=== PATIENT | male | born 2000 | race Two or more races ===

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

== ENCOUNTER 2023-03-01 18:33 | Emergency (ER) | payer OTHER ==
[~2023-03-01] VITALS: Ht 180.3 cm; Wt 124.7 kg
[~2023-03-01 18:33] MED LIST changes: +AZIT250 PO; +BENZ100A PO; +GUAI600T33 PO; +ONDA4ODT MM
[2023-03-01 19:02] VITALS: BP 141/81
== END 2023-03-01 20:10 | disposition home or self-care (01) ==
LOC: ER 18:33
DX: B34.9 Viral infection, unspecified (principal)
CPT/HCPCS: 99283

== ENCOUNTER 2023-10-19 16:54 | Emergency (ER) | payer OTHER ==
[~2023-10-19] VITALS: Ht 180.3 cm; Wt 124.7 kg
[2023-10-19 17:56] VITALS: BP 133/87
[2023-10-19] MEDS ORDERED: Veetids 500500 MG PO (17:59)
== END 2023-10-19 18:03 | disposition home or self-care (01) ==
LOC: ER 16:54
DX: J02.9 Acute pharyngitis, unspecified (principal); F17.200 Nicotine dependence, unspecified, uncomplicated
CPT/HCPCS: 96374; 99282-25; A9270; J1100

== ENCOUNTER → 2025-02-01 | Outpatient (CLI) | payer OTHER ==
[~2025-02-01] MED LIST changes: +DICY20 PO; +Veetids 500500 MG PO
[2025-02-01 12:51] LABS: BASOPHILS ABSOLUTE AUTO 0.03 K/mm3 (0.00-0.23); BASOPHILS PERCENT AUTO 0 % (0-2); EOSINOPHILS PERCENT AUTO 2 % (0-6); Hematocrit 43.8 % (37.0-53.0); Hemoglobin 14.6 g/dL (13.5-17.5); IMMATURE GRAN ABSOLUTE AUTO 0.03 K/mm3 (0.00-0.10); IMMATURE GRAN PERCENT AUTO 0 % (0-1); LYMPHOCYTES ABSOLUTE AUTO 2.61 K/mm3 (0.84-5.20); LYMPHOCYTES PERCENT AUTO 38 % (21-46); MONOCYTES ABSOLUTE AUTO 0.54 K/mm3 (0.16-1.47); MONOCYTES PERCENT AUTO 8 % (4-13); Mean Corpuscular HGB Conc 33.3 g/dL (31.5-36.5); Mean Corpuscular Volume 84 fL (80-100); Mean Platelet Volume 9.3 fL (9.1-12.4); NEUTROPHILS ABSOLUTE AUTO 3.56 K/mm3 (1.96-9.15); NEUTROPHILS PERCENT AUTO 52 % (41-73); Platelet Count 225 K/mm3 (150-400); RDW Coefficient Variation 13.6 % (11.7-14.2); RDW Standard Deviation 41.9 fL (35.1-46.3); Red Blood Cell Count 5.21 M/mm3 (4.30-5.90); White Blood Cell Count 6.87 K/mm3 (4.00-11.30)
[2025-02-01 13:03] LABS: Albumin, Blood 3.9 g/dL (3.4-5.0); Albumin/Globulin Ratio 1.1 (0.8-1.8); Bun/Creatinine Ratio 15.2 (12.0-20.0); Creatinine, Blood 0.92 mg/dL (0.60-1.20); Globulin, Blood 3.5 g/dL (2.2-4.0); Potassium, Blood 3.9 mmol/L (3.5-5.5); Total Protein, Blood 7.4 g/dL (6.4-8.2)
== END | disposition home or self-care (01) ==
LOC: LAB 12:47 → LAB SHORT 12:47
PROVIDERS: Physician Assistant
DX: R10.11 Right upper quadrant pain (principal)
CPT/HCPCS: 80053; 83690; 85025

== ENCOUNTER 2025-02-02 20:12 | Emergency (ER) | payer OTHER ==
[~2025-02-02] VITALS: Ht 180.3 cm; Wt 126.5 kg
[~2025-02-02 20:12] MED LIST changes: -DICY20 PO
[2025-02-02] MEDS ORDERED: Lactated Ringer's 1,000 ML IV ONE (21:55)
[2025-02-02] MEDS ORDERED: Morphine Sulfate 4 MG/1 ML Injection IV ONE (21:55)
[2025-02-02] MEDS ORDERED: Ondansetron HCl 2 MG / ML 2ML Vial IV ONE (21:55)
[2025-02-02 22:11] LABS: Albumin/Globulin Ratio 1.1 (0.8-1.8); Bilirubin, Total 0.6 mg/dL (0.1-1.0); Bun/Creatinine Ratio 16.4 (12.0-20.0); Calcium, Blood 9.3 mg/dL (8.5-10.1); Creatinine, Blood 0.98 mg/dL (0.60-1.20); Globulin, Blood 3.8 g/dL (2.2-4.0); Magnesium, Blood 2.3 mg/dL (1.6-2.4); Potassium, Blood 4.1 mmol/L (3.5-5.5); Total Protein, Blood 7.8 g/dL (6.4-8.2)
[2025-02-02 23:52] LABS: BASOPHILS ABSOLUTE AUTO 0.04 K/mm3 (0.00-0.23); BASOPHILS PERCENT AUTO 0 % (0-2); EOSINOPHILS ABSOLUTE AUTO 0.07 K/mm3 (0.00-0.68); EOSINOPHILS PERCENT AUTO 1 % (0-6); Hematocrit 41.6 % (37.0-53.0); Hemoglobin 13.8 g/dL (13.5-17.5); IMMATURE GRAN ABSOLUTE AUTO 0.05 K/mm3 (0.00-0.10); IMMATURE GRAN PERCENT AUTO 0 % (0-1); LYMPHOCYTES ABSOLUTE AUTO 1.81 K/mm3 (0.84-5.20); LYMPHOCYTES PERCENT AUTO 13 % (21-46); MONOCYTES ABSOLUTE AUTO 0.67 K/mm3 (0.16-1.47); MONOCYTES PERCENT AUTO 5 % (4-13); Mean Corpuscular HGB 27.8 pg (26.0-34.0); Mean Corpuscular HGB Conc 33.2 g/dL (31.5-36.5); Mean Corpuscular Volume 84 fL (80-100); NEUTROPHILS ABSOLUTE AUTO 11.01 K/mm3 (1.96-9.15); NEUTROPHILS PERCENT AUTO 81 % (41-73); RDW Coefficient Variation 13.3 % (11.7-14.2); RDW Standard Deviation 40.9 fL (35.1-46.3); Red Blood Cell Count 4.97 M/mm3 (4.30-5.90); White Blood Cell Count 13.65 K/mm3 (4.00-11.30)
[2025-02-02 23:57] LABS: Platelet Count 181 K/mm3 (150-400)
[2025-02-03 00:30] VITALS: BP 139/97
[2025-02-03] MEDS ORDERED: DICY20 PO (00:30)
[2025-02-03] MEDS ORDERED: ONDA4ODT MM (00:30)
[2025-02-03] MEDS ORDERED: Ketorolac Tromethamine 15mg Vial IV ONE (00:30)
== END 2025-02-03 00:40 | disposition home or self-care (01) ==
LOC: ER 20:12
PROVIDERS: Student in an Organized Health Care Education/Training Program
DX: I88.0 Nonspecific mesenteric lymphadenitis (principal); K82.8 Other specified diseases of gallbladder; F17.200 Nicotine dependence, unspecified, uncomplicated
CPT/HCPCS: 74177; 76705; 80053; 83690; 83735; 85025; 96374-59; 96375; 99284-25; J1885; J2270; J2405; J7120; Q9967

== ENCOUNTER 2025-02-10 13:17 | Observation (INO) | payer OTHER ==
[~2025-02-10] VITALS: Ht 180.3 cm; Wt 127.0 kg
[~2025-02-10 13:17] MED LIST changes: +DICY20 PO
[2025-02-10 13:57] LABS: BASOPHILS ABSOLUTE AUTO 0.02 K/mm3 (0.00-0.23); BASOPHILS PERCENT AUTO 0 % (0-2); EOSINOPHILS ABSOLUTE AUTO 0.01 K/mm3 (0.00-0.68); EOSINOPHILS PERCENT AUTO 0 % (0-6); Hematocrit 43.4 % (37.0-53.0); Hemoglobin 14.7 g/dL (13.5-17.5); IMMATURE GRAN ABSOLUTE AUTO 0.05 K/mm3 (0.00-0.10); IMMATURE GRAN PERCENT AUTO 0 % (0-1); LYMPHOCYTES ABSOLUTE AUTO 0.77 K/mm3 (0.84-5.20); LYMPHOCYTES PERCENT AUTO 6 % (21-46); MONOCYTES PERCENT AUTO 3 % (4-13); Mean Corpuscular HGB 27.9 pg (26.0-34.0); Mean Corpuscular HGB Conc 33.9 g/dL (31.5-36.5); Mean Corpuscular Volume 83 fL (80-100); Mean Platelet Volume 9.2 fL (9.1-12.4); NEUTROPHILS ABSOLUTE AUTO 12.34 K/mm3 (1.96-9.15); NEUTROPHILS PERCENT AUTO 91 % (41-73); Platelet Count 287 K/mm3 (150-400); RDW Coefficient Variation 13.1 % (11.7-14.2); RDW Standard Deviation 39.6 fL (35.1-46.3); Red Blood Cell Count 5.26 M/mm3 (4.30-5.90); White Blood Cell Count 13.59 K/mm3 (4.00-11.30)
[2025-02-10 14:31] LABS: Albumin, Blood 3.9 g/dL (3.4-5.0); Bilirubin, Total 0.6 mg/dL (0.1-1.0); Bun/Creatinine Ratio 19.6 (12.0-20.0); Calcium, Blood 9.5 mg/dL (8.5-10.1); Creatinine, Blood 0.66 mg/dL (0.60-1.20); Globulin, Blood 4.1 g/dL (2.2-4.0); Potassium, Blood 3.9 mmol/L (3.5-5.5)
[2025-02-10] MEDS ORDERED: Lactated Ringer's 1,000 ML IV SCH ×2 (15:00→15:45)
[2025-02-10] MEDS ORDERED: Ondansetron HCl 2 MG / ML 2ML Vial IV ONE (15:00)
[2025-02-10] MEDS ORDERED: Morphine Sulfate 4 MG/1 ML Injection IV ONE (15:00)
[2025-02-10] MEDS ORDERED: HYDROcodone 5-APAP 325 TAB PO PRN (15:45)
[2025-02-10] MEDS ORDERED: Ondansetron HCl 2 MG / ML 2ML Vial IV PRN (15:45)
[2025-02-10] MEDS ORDERED: FentaNYL Citrate 50 MCG/ML 2 ML Injection IV PRN (15:45)
[2025-02-10] MEDS ORDERED: Ondansetron 4 MG TAB PO PRN (15:45)
[2025-02-10 17:13] VITALS: BP 145/77
[2025-02-10] MEDS ORDERED: Ampicillin Sod/Sulbactam Sod 3 GM in NS 100 ML IV SCH (18:00)
--- NOTE | 2025-02-10 18:25 | NUR ---
ADMIT NEW ER ADMIT FOR CHOLELITHIASIS. A+O X4 AND INDEPENDENT. REPORTS 6/10 ABD PAIN. FENTANYL GIVEN PER ORDERS. X1 LARGE EMESIS--PT REPORTS FEELING BETTER AFTER. IVF + ABX INFUSING PER ORDERS. PT TO BE NPO AT MIDNIGHT FOR SUGERY TOMORROW. DR. LAO IN TO SEE PT. PT GRANDMA AT BEDSIDE FOR SUPPORT. CALL LIGHT WITHIN REACH.
[2025-02-10 19:35] VITALS: BP 138/75
[2025-02-10] MEDS ORDERED: Docusate Sodium 100 MG Cap PO SCH (21:00)
[2025-02-11] VITALS (15 sets, daily range): BP systolic 106–152; BP diastolic 61–82
[2025-02-11 06:09] LABS: BASOPHILS ABSOLUTE AUTO 0.01 K/mm3 (0.00-0.23); BASOPHILS PERCENT AUTO 0 % (0-2); EOSINOPHILS ABSOLUTE AUTO 0.02 K/mm3 (0.00-0.68); EOSINOPHILS PERCENT AUTO 0 % (0-6); Hemoglobin 14.2 g/dL (13.5-17.5); IMMATURE GRAN ABSOLUTE AUTO 0.06 K/mm3 (0.00-0.10); IMMATURE GRAN PERCENT AUTO 0 % (0-1); LYMPHOCYTES ABSOLUTE AUTO 1.24 K/mm3 (0.84-5.20); LYMPHOCYTES PERCENT AUTO 9 % (21-46); MONOCYTES ABSOLUTE AUTO 1.51 K/mm3 (0.16-1.47); MONOCYTES PERCENT AUTO 11 % (4-13); Mean Corpuscular HGB 27.5 pg (26.0-34.0); Mean Corpuscular Volume 83 fL (80-100); Mean Platelet Volume 9.1 fL (9.1-12.4); NEUTROPHILS ABSOLUTE AUTO 11.34 K/mm3 (1.96-9.15); NEUTROPHILS PERCENT AUTO 80 % (41-73); Platelet Count 256 K/mm3 (150-400); RDW Coefficient Variation 13.2 % (11.7-14.2); Red Blood Cell Count 5.17 M/mm3 (4.30-5.90); White Blood Cell Count 14.18 K/mm3 (4.00-11.30)
[2025-02-11 06:33] LABS: Albumin, Blood 3.4 g/dL (3.4-5.0); Albumin/Globulin Ratio 0.9 (0.8-1.8); Bilirubin, Total 1.3 mg/dL (0.1-1.0); Bun/Creatinine Ratio 11.5 (12.0-20.0); Calcium, Blood 8.8 mg/dL (8.5-10.1); Creatinine, Blood 0.78 mg/dL (0.60-1.20); Globulin, Blood 3.7 g/dL (2.2-4.0); Potassium, Blood 3.6 mmol/L (3.5-5.5); Total Protein, Blood 7.1 g/dL (6.4-8.2)
--- NOTE | 2025-02-11 06:43 | NUR ---
SHIFT SUMMARY NO ACUTE CHANGES THIS SHIFT. PT NPO SINCE MIDNIGHT. ABX INFUSED PER ORDERS. PT VOIDING IND IN ROOM. PAIN MANAGED PER EMAR. PLAN FOR SURGERY TODAY. PT HAS CALL LIGHT IN REACH AND IS ABLE TO MAKE NEEDS KNOWN. WILL GIVE REPORT TO ONCOMING RN.
[2025-02-11] MEDS ORDERED: Lactated Ringer's 1,000 ML IV SCH ×2 (09:45→13:55)
--- NOTE | 2025-02-11 10:12 | NUR ---
PT TAKEN TO DAY SURGERY AT THIS TIME.
--- NOTE | 2025-02-11 10:50 | NUR ---
PT STATES INTERMITTENT CHEST "PRESSURE" AND WHEN ASKED TO POINT TO WHERE PAIN IS LOCATED HE INIDICATED THE PRESSURE WAS OVER HIS XYPHOID PROCESS. HE CLAIMS PRESSURE HAS BEEN INTERMITTENTLY PRESENT SINCE HE STARTED HAVING GALLBLADDER RELATED ISSUES TWO SUNDAYS AGO. PT STATES REPOSITIONING HELPS RELIEVE THE PRESSURE. PT REPOSITIONED, PULSE OX AND BP CUFF PLACED, PT SHOWING NO SIGNS OF DISTRESS, NO SOB.
[2025-02-11] MEDS ORDERED: Bupivacaine 0.5% HCl 5 MG/ML 30MLVIAL ONE (11:17)
[2025-02-11] MEDS ORDERED: FentaNYL Citrate 50 MCG/ML 2 ML Injection ONE ×2 (12:08→13:11)
[2025-02-11] MEDS ORDERED: propofoL 20 ML IV ONE (12:08)
[2025-02-11] MEDS ORDERED: Ampicillin Sod/Sulbactam Sod 3 GM ONE (12:10)
[2025-02-11] MEDS ORDERED: Rocuronium Bromide 10 MG/ML 5ML Injection IV ONE (12:14)
[2025-02-11] MEDS ORDERED: Dexamethasone Sod Phos 10 MG/ML 1ML VIAL ONE (12:14)
[2025-02-11] MEDS ORDERED: Ondansetron HCl 2 MG / ML 2ML Vial ONE (12:14)
[2025-02-11] MEDS ORDERED: Ketorolac Tromethamine 30mg Vial ONE (12:15)
[2025-02-11] MEDS ORDERED: FentaNYL Citrate 50 MCG/ML 2 ML Injection IV PRN ×2 (12:35)
[2025-02-11] MEDS ORDERED: Ondansetron HCl 2 MG / ML 2ML Vial IV PRN (12:35)
[2025-02-11] MEDS ORDERED: Morphine Sulfate 4 MG/1 ML Injection IV PRN (12:35)
[2025-02-11] MEDS ORDERED: HYDROmorphone HCl/Pf 1MG SYR IV PRN (12:35)
[2025-02-11] MEDS ORDERED: Sugammadex Sodium 200 MG/2ML SDV (100 MG/ML) ONE (13:36)
--- NOTE | 2025-02-11 14:04 | NUR ---
AGREE WITH STUDENT NURSE SHIFT ASSESSMENT.
--- NOTE | 2025-02-11 14:50 | NUR ---
POST OP PT RETURNED FROM [facility] AND HAS 4 LAP SITES CLOSED WITH STERI STRIPS. PT DENIES N/V AND PAIN. PT IS ALERT AND ORIENTED. WEANING OFF 02 TOLERATED. ENCOURAGING COUGHING AND DEEP BREAHTING. PT IS SLOWLY TOLERATING SMALL SIPS OF WATER. GRANDMA AT BEDSIDE FOR SUPPORT. CALL LIGHT WITHIN REACH.
--- NOTE | 2025-02-11 16:21 | NUR ---
SHIFT SUMMARY SINCE RETURNING FROM SURGERY PT HAS ATE CRACKERS AND SIPPED ON WATER. HE AMBULATED IN THE HALLS WITH A STEADY GAIT. POST-OP VITAL SIGNS ARE STABLE PT IS STILL DENYING N/V AND PAIN. LAP SITES REMAIN CDI. CALL LIGHT IS WITHIN REACH OF PT.
[2025-02-11] MEDS ORDERED: Acetaminophen 325 MG TABLET PO PRN (16:30)
[2025-02-11] MEDS ORDERED: HYDR1TAB94 PO (17:42)
--- NOTE | 2025-02-11 18:22 | NUR ---
DISCHARGE PT EDUCATED ON AND RECEIVED PRINTED DISCHARGE INSTRUCTIONS AND VERB AN UNDERSTANDING. HARD RX FOR NORCO GIVEN TO PT. IV DC'D. PT LEFT WITH ALL PERSONAL BELONGINGS AND ESCORTED OUT VIA W/C WITH SPOUSE AT SIDE TO DRIVE PT HOME.
== END 2025-02-11 18:02 | disposition home or self-care (01) ==
LOC: ER 13:17 → SURS 13:18
PROVIDERS: Student in an Organized Health Care Education/Training Program; ADMIT Surgery
PROC: 0FT44ZZ Resection of Gallbladder, Percutaneous Endoscopic Approach (ICD-10-PCS; principal; 2025-02-11 11:30)
DX: K80.00 Calculus of gallbladder with acute cholecystitis without obstruction (principal); F17.210 Nicotine dependence, cigarettes, uncomplicated
CPT/HCPCS: 36415; 76705; 80053; 83690; 85025; 88304; 96365; 96366; 96374; 96375; 96376; 99285-25; A9270; G0378; J0295; J1100; J1885; J2270; J2405; J2704; J3010; J7120

== ENCOUNTER 2025-09-18 15:41 | Emergency (ER) | payer OTHER ==
[~2025-09-18] VITALS: Ht 170.2 cm; Wt 99.8 kg
[~2025-09-18 15:41] MED LIST changes: +HYDR1TAB94 PO
[2025-09-18 15:51] VITALS: BP 149/85
== END 2025-09-18 18:00 | disposition home or self-care (01) ==
LOC: ER 15:41
DX: M25.562 Pain in left knee (principal); F17.200 Nicotine dependence, unspecified, uncomplicated; Z59.89 Other problems related to housing and economic circumstances
CPT/HCPCS: 73562-LT; 99283-25